=== PATIENT | female | born 2000 | race Caucasian/White ===

== ENCOUNTER → 2020-04-08 15:05 | Outpatient (CLI) | payer MEDICAID, SELFPAY ==
[2020-04-08 15:52] LABS: Absolute Lymphocyte Count 2.22 X10^3/uL (0.83-4.51); Absolute Neutrophil Count 6.4 X10^3/uL (2.0-7.7); Basophil# 0.05 X10^3/uL; Basophil% 0.5 % (0-1); Eosinophil# 0.06 X10^3/uL; Eosinophils% 0.6 % (0-5); Hemoglobin 13.4 g/dL (12.0-15.0); Lymphocyte # 2.22 X10^3/ul (4.0); Lymphocyte % 23.7 % (19-41); Mean Corp Hgb Conc 33.5 g/dL (32-36); Mean Corpuscular Hgb 30.7 pg (27.0-32.0); Mean Corpuscular Volume 91.5 fL (81-99); Mean Platelet Vol. 9.6 fl (6.2-12.0); Monocyte# 0.59 X10^3/uL; Monocyte% 6.3 % (0-10); NRBC Flagged by Analyzer 0 % (0-5); Neutrophil % 68.3 % (47-70); Platelet Count 257 K/mm3 (150-450); RBC Distribution Width CV 12.8 % (11.6-14.6); RBC Distribution Width SD 42.8 fl (35.1-43.9); Red Blood Count 4.37 M/mm3 (4.2-5.4); White Blood Count 9.4 K/mm3 (4.4-11.0)
[2020-04-08 15:55] LABS: Color, Urine Yellow (Yellow); Glucose, Dipstick 50 mg/dl (Normal); Ketone-Dipstick Negative (Negative); Leukocyte Esterase-Dipstick 100 /ul (Negative); Nitrite-Dipstick Negative (Negative); Occult Blood-Urine Negative /ul (Negative); Protein-Dipstick 15 mg/dl (Negative); Specific Gravity, Urine 1.025 (1.002-1.030); Urine Bilirubin Dipstick Negative (Negative); Urine Clarity Sl. Cloudy (Clear); Urine Urobilinogen Normal (Normal)
[2020-04-08 16:21] LABS: Amphetamine Urine VISTA NEGATIVE (<1000 ng/mL); Barbiturate Urine VISTA NEGATIVE (< 200 ng/mL); Benzodiazepine Urine VISTA NEGATIVE (< 200 ng/mL); Cocaine Urine VISTA NEGATIVE (< 300 ng/mL); Ecstacy Urine VISTA NEGATIVE (< 500 ng/mL); Methadone Urine VISTA NEGATIVE (< 300 ng/mL); PCP Urine VISTA NEGATIVE (< 25 ng/mL); THC Urine VISTA NEGATIVE (< 50 ng/mL); Vista UDS pH Range 6
[2020-04-08 16:37] LABS: Free T3 2.4 pg/mL (2.18-3.98); T4 Free Direct 1.13 ng/dL (0.76-1.46)
[2020-04-09 09:49] LABS: HIV - WCH Non-Reactive (Nonreactive); Hepatitis B Surface Antigen Non-Reactive (Nonreactive); Hepatitis C Antibody Non-Reactive (Nonreactive); Rubella IgG 116.6 IU/mL
[2020-04-12 20:07] LABS: Chlamydia By Nucleic Acid AMP Negative (Negative)
[2020-04-12 20:12] LABS: Gonococcus By Nucleic Acid AMP Negative (Negative)
[2020-04-13 18:21] LABS: HPV Reflexed? NOT INDICATED
[2020-04-15 03:02] LABS: Prenatal RPR NONREACTIVE (NONREACTIVE)
== END ==
PROVIDERS: Visit Provider Obstetrics & Gynecology
DX: O99.281 Endocrine, nutritional and metabolic diseases complicating pregnancy, first trimester (principal); E03.9 Hypothyroidism, unspecified; E06.3 Autoimmune thyroiditis; Z3A.00 Weeks of gestation of pregnancy not specified; Z12.4 Encounter for screening for malignant neoplasm of cervix; Z11.3 Encounter for screening for infections with a predominantly sexual mode of transmission
CPT/HCPCS: 36415; 80307; 81002; 84439; 84481; 85025; 86703; 86762; 86803; 87077; 87086; 87088; 87340; 87491; 87591; 88175; G0145

== ENCOUNTER → 2020-05-11 14:18 | Outpatient (CLI) | payer MEDICAID, SELFPAY ==
[2020-05-11 16:16] LABS: Free T3 2.4 pg/mL (2.18-3.98); T4 Free Direct 1.05 ng/dL (0.76-1.46); Thyroid Stim Hormone (TSH) 1.15 uIU/mL (0.358-3.74)
== END ==
PROVIDERS: Visit Provider Student in an Organized Health Care Education/Training Program
DX: E06.3 Autoimmune thyroiditis (principal)
CPT/HCPCS: 36415; 84439; 84443; 84481

== ENCOUNTER → 2020-07-08 13:41 | Outpatient (CLI) | payer MEDICAID, SELFPAY ==
[2020-07-08 15:28] LABS: Hematocrit 35.1 % (37-47); Hemoglobin 11.7 g/dL (12.0-15.0); Mean Corp Hgb Conc 33.3 g/dL (32-36); Mean Corpuscular Hgb 31.1 pg (27.0-32.0); Mean Corpuscular Volume 93.4 fL (81-99); Mean Platelet Vol. 10.5 fl (6.2-12.0); Platelet Count 271 K/mm3 (150-450); RBC Distribution Width CV 12.5 % (11.6-14.6); RBC Distribution Width SD 42.8 fl (35.1-43.9); Red Blood Count 3.76 M/mm3 (4.2-5.4); White Blood Count 9.4 K/mm3 (4.4-11.0)
[2020-07-08 16:18] LABS: Free T3 2.5 pg/mL (2.18-3.98); Glucose Challenge Gest 1H 50g 88 mg/dL (70-140); T4 Free Direct 1.12 ng/dL (0.76-1.46); Thyroid Stim Hormone (TSH) 1.41 uIU/mL (0.358-3.74)
== END ==
PROVIDERS: Visit Provider Student in an Organized Health Care Education/Training Program
DX: O26.892 Other specified pregnancy related conditions, second trimester (principal); E06.3 Autoimmune thyroiditis; Z3A.00 Weeks of gestation of pregnancy not specified
CPT/HCPCS: 36415; 82950; 84439; 84443; 84481; 85027

== ENCOUNTER → 2020-08-05 11:30 | Outpatient (CLI) | payer MEDICAID, SELFPAY ==
[2020-08-05 13:56] LABS: Free T3 2.3 pg/mL (2.18-3.98); T4 Free Direct 1.01 ng/dL (0.76-1.46); Thyroid Stim Hormone (TSH) 1.04 uIU/mL (0.358-3.74)
== END ==
PROVIDERS: Visit Provider Student in an Organized Health Care Education/Training Program
DX: E03.9 Hypothyroidism, unspecified (principal)
CPT/HCPCS: 36415; 84439; 84443; 84481

== ENCOUNTER → 2020-09-02 14:17 | Outpatient (CLI) | payer MEDICAID, SELFPAY ==
[2020-09-02 15:15] LABS: T4 Free Direct 1.06 ng/dL (0.76-1.46)
== END ==
PROVIDERS: Visit Provider Obstetrics & Gynecology
DX: Z34.83 Encounter for supervision of other normal pregnancy, third trimester (principal)
CPT/HCPCS: 36415; 84439; 84443

== ENCOUNTER → 2020-09-27 15:45 | Outpatient (CLI) | payer MEDICAID, SELFPAY | PROVIDERS: Visit Provider Obstetrics & Gynecology | DX: Z34.83 Encounter for supervision of other normal pregnancy, third trimester (principal); Z36.85 Encounter for antenatal screening for Streptococcus B | CPT/HCPCS: 87081; 87086; 87088 ==

== ENCOUNTER 2020-10-07 13:42 | Outpatient (CLI) | payer MEDICAID, SELFPAY ==
[2020-10-07 13:45] VITALS: BMI 27.8
[2020-10-07 14:19] LABS: ROM Internal Control Test YES-OK TO RESULT pt. (Internal QC); ROM Patient Test Negative (Negative)
--- NOTE | 2020-10-08 08:05 | OB.TRI.NOTE ---
History of Present Illness Date of Service: 10/07/20 Was patient seen by the physician?: No Reason For Visit: R/O RUPTURE Date of Service: 10/07/20 Final DAYNA: 10/24/20 Final DAYNA Source: US <20 weeks Gestational age: 37 Weeks and 4 Days History of Present Illness: 37+ week intrauterine presents with some leaking of fluid. Thinks her water might of broke. Patient also having regular mild contractions. Allergies cefdinir [From Omnicef] Allergy (Verified 10/07/20 14:00) Hives Penicillins Allergy (Verified 10/07/20 14:00) Hives Laboratory Studies: Laboratory Tests 10/07/20 Range/Units 13:50 Vag Amniotic Fld Detect Negative (Negative) NST - FHR Rate Baby A NST Reactive:: Yes FHR Category:: Category I Uterine Activity:: Regular contractions noted on monitor. Impression/Plan 37+ week intrauterine with false labor. Cervix unchanged after her observation. ROM test negative. Reactive nonstress test. Labor instructions given and patient instructed to return for routine care in the office.
== END 2020-10-07 14:45 | disposition home or self-care (01) ==
LOC: OBT 13:44 → WP 13:45
PROVIDERS: Referring Provider Obstetrics & Gynecology; Visit Provider Obstetrics & Gynecology
DX: O47.1 False labor at or after 37 completed weeks of gestation (principal); Z3A.37 37 weeks gestation of pregnancy; Z88.0 Allergy status to penicillin; Z88.1 Allergy status to other antibiotic agents
CPT/HCPCS: 59025; 59050; 84112; 99218; G0378

== ENCOUNTER 2020-10-09 19:00 | Outpatient (CLI) | payer MEDICAID, SELFPAY ==
[2020-10-07 14:00] VITALS: O2SAT 99
[2020-10-09 19:36] VITALS: TEMP 36.1
[2020-10-09 19:37] VITALS: BP 125/77; PULSE 90
[2020-10-09 19:48] VITALS: BMI 27.6
--- NOTE | 2020-10-10 00:32 | OB.TRI.NOTE ---
History of Present Illness Date of Service: 10/09/20 Was patient seen by the physician?: No Reason For Visit: R/O LABOR Date of Service: 10/09/20 Final DAYNA: 10/24/20 Final DAYNA Source: US <20 weeks Gestational age: 38 Weeks and 0 Days History of Present Illness: Patient arrives with contractions Allergies cefdinir [From Omnicef] Allergy (Verified 10/09/20 19:49) Hives Penicillins Allergy (Verified 10/09/20 19:49) Hives Physical Exam Vitals: Vital Signs Temp Pulse BP Pulse Ox 97.0 F L 90 125/77 H 99 10/09/20 19:36 10/09/20 19:37 10/09/20 19:37 10/07/20 14:00 NST - FHR Rate Baby A Baseline: 120 Variability:: Moderate Accelerations:: 15 x 15 Decelerations:: None NST Reactive:: Yes Uterine Activity:: Few contractions Impression/Plan Patient arrived good with contractions. Cervix unchanged from office check. Ruled out labor. Okay to discharge home with labor precautions. Follow-up at scheduled appointments.
== END 2020-10-09 20:40 | disposition home or self-care (01) ==
LOC: WPOUT 19:14 → WP 19:14
PROVIDERS: Visit Provider Obstetrics & Gynecology
DX: O26.893 Other specified pregnancy related conditions, third trimester (principal); N85.8 Other specified noninflammatory disorders of uterus; Z3A.38 38 weeks gestation of pregnancy
CPT/HCPCS: 59025; 59050; 99218; G0378

== ENCOUNTER → 2020-10-13 11:40 | Outpatient (CLI) | payer MEDICAID, SELFPAY ==
[2020-10-09 19:48] VITALS: BMI 27.6
[2020-10-13 11:53] LABS: Hematocrit 35.8 % (37-47); Hemoglobin 11.5 g/dL (12.0-15.0); Mean Corp Hgb Conc 32.1 g/dL (32-36); Mean Corpuscular Hgb 27.9 pg (27.0-32.0); Mean Corpuscular Volume 86.9 fL (81-99); Mean Platelet Vol. 10.7 fl (6.2-12.0); Platelet Count 250 K/mm3 (150-450); RBC Distribution Width CV 12.8 % (11.6-14.6); Red Blood Count 4.12 M/mm3 (4.2-5.4); White Blood Count 8.2 K/mm3 (4.4-11.0)
[2020-10-13 12:10] LABS: Protein, Urine (Random) 9.1 mg/dL (<11.9); Protein:Creat Ratio 143 mg/g CRE (0-200)
[2020-10-13 12:54] LABS: ALB/GLOB Ratio 0.7 RATIO (0.9-2.4); AST(SGOT) 17 U/L (15-37); Alanine Aminotransfer ALT/SGPT 19 U/L (13-56); Albumin, Serum 2.8 g/dL (3.2-5.0); Alkaline Phosphatase 151 U/L (45-117); Anion Gap 7 (5-15); BUN 5 mg/dL (7-18); BUN/Creat Ratio 9.9 RATIO (10-20); Calcium,Total 8.5 mg/dL (8.5-10.1); Chloride 108 mmol/L (98-107); Creatinine, Serum 0.51 mg/dL (0.55-1.02); EST Glomerular Filtration Rate 162 mL/min (>60); Est Glom Filt Rate - Afr Amer 196 mL/min (>60); Glucose 72 mg/dL (74-106); LDH 187 U/L (84-246); Potassium 3.8 mmol/L (3.5-5.1); Protein, Total 6.8 g/dL (6.4-8.2); Sodium Level 138 mmol/L (136-145)
== END ==
PROVIDERS: Visit Provider Student in an Organized Health Care Education/Training Program
DX: O13.3 Gestational [pregnancy-induced] hypertension without significant proteinuria, third trimester (principal); Z3A.00 Weeks of gestation of pregnancy not specified
CPT/HCPCS: 36415; 80053; 82570; 83615; 84156; 85027; 87086; 87088

== ENCOUNTER 2020-10-26 18:45 | Inpatient (IN) | payer MEDICAID, SELFPAY ==
[2020-10-26 19:00] VITALS: BP 137/85; PULSE 75; O2SAT 99
[2020-10-26 19:01] VITALS: TEMP 36.6
[2020-10-26 19:11] VITALS: BMI 29.0
[2020-10-26] MEDS: miSOPROStol 25 MCG TABLET VAGINAL (19:50)
[2020-10-26 20:01] LABS: Absolute Neutrophil Count 8.2 X10^3/uL (2.0-7.7); Basophil# 0.03 X10^3/uL; Basophil% 0.3 % (0-1); Eosinophil# 0.04 X10^3/uL; Eosinophils% 0.3 % (0-5); Hematocrit 35.3 % (37-47); Hemoglobin 11.4 g/dL (12.0-15.0); Lymphocyte % 19.1 % (19-41); Mean Corp Hgb Conc 32.3 g/dL (32-36); Mean Corpuscular Hgb 27.5 pg (27.0-32.0); Mean Corpuscular Volume 85.3 fL (81-99); Monocyte# 0.95 X10^3/uL; Monocyte% 8.2 % (0-10); NRBC Flagged by Analyzer 0 % (0-5); Neutrophil # 8.23 X10^3/uL (2.7-7.7); Neutrophil % 71.3 % (47-70); Platelet Count 257 K/mm3 (150-450); RBC Distribution Width CV 13.2 % (11.6-14.6); Red Blood Count 4.14 M/mm3 (4.2-5.4); White Blood Count 11.5 K/mm3 (4.4-11.0)
--- NOTE | 2020-10-26 20:04 | PCM.HP.BLA ---
History and Physical Date of Admission: 10/26/20 Chief complaint: Induction of labor at term History of present illness: 20-year-old G1, P0 at 40 weeks and 2 days with DAYNA: 10/24/2020 by 12-week ultrasound arrives for induction of labor at term. Denies headache, visual changes, chest pain, shortness of breath, nausea vomiting, right upper quadrant pain. Patient states good movement. Obstetric history: G1: Current Past medical history: Alexsander's Medications: vitamin Past surgical history: Tonsils and adenoids Social history: Former smoker, denies alcohol, denies drug use Allergies: Omnicef (rash), penicillin (rash) Family history: Denies history of DVT or PE Review of systems: Besides above pertinent positives a full review of systems was performed and found to be negative Physical exam: Vitals: BP 125/77 pulse 75 SPO2 99% on room air temperature 97.0 General: Normal-appearing no acute distress HEENT: Normocephalic atraumatic no cervical of adenopathy Cardiac/respiratory: Nonlabored breathing, no use of accessory muscles Abdomen: Soft, nontender, gravid Pelvic exam: Cervical exam 50/-3 Extremities: no peripheral edema normal peripheral pulses Psych: Normal affect normal demeanor nonpressured speech Assessment and plan: 20-year-old G1, P0 at 40 weeks and 2 days arrives for induction of labor at term. -Admit labor and delivery -CEFM -GBS negative -Induction via Cytotec -Routine orders -Anesthesia to see
[2020-10-26] MEDS: 0.9% Saline Lock 10 ML Syringe IV (23:40)
[2020-10-26] MEDS: Lactated Ringers 1,000 ML 50 ML IV (23:44)
[2020-10-26] MEDS: Lactated Ringers 500 ML 999 ML IV (23:46)
[2020-10-26 23:49] VITALS: BP 96/56; PULSE 61; TEMP 36.7; O2SAT 100
[2020-10-27] VITALS (57 sets, daily range): BP systolic 108–139; BP diastolic 60–93; PULSE 65–214; RESP 16–18; TEMP 36.4–37.3; O2SAT 79–100
[2020-10-27 00:27] LABS: ROM Internal Control Test YES-OK TO RESULT pt. (Internal QC)
[2020-10-27 00:29] LABS: ROM Patient Test POSITIVE (Negative)
[2020-10-27] MEDS: Oxytocin 30 units/NS 500 ml 30 UNITS/500 ML IV.SOLN IV (00:49)
[2020-10-27] MEDS: Lactated Ringers 500 ML 999 ML IV ×2 (02:03→07:02)
[2020-10-27] MEDS: fentaNYL-bupivacaine (epidural) 100 ML BAG EPIDURAL ×2 (03:03→06:56)
[2020-10-27] MEDS: Lactated Ringers 1,000 ML 200 ML IV (06:55)
[2020-10-27] MEDS: Ondansetron 4 MG/2 ML Vial IV (07:28)
--- NOTE | 2020-10-27 08:13 | PN.OBGYN_ITS ---
Subjective Subjective: Patient seen and examined. Comfortable with epidural. Objective Data Objective Data Vital Signs: Vital Signs Temp Pulse BP Pulse Ox 98.4 F 106 H 132/85 H 99 10/27/20 07:17 10/27/20 07:17 10/27/20 07:17 10/27/20 06:20 Weight: 153 lb 9.6 oz Body Mass Index (BMI) 29.0 Intake & Output: Intake and Output for Last 24 Hours 10/25/20 10/26/20 10/27/20 23:59 23:59 23:59 Intake Total 0.83 / 0.83 2282.86 / 2282.86 Output Total 550 / 550 Balance 0.83 / 0.83 1732.86 / 1732.86 Lab / Micro Data Result Diagrams: 10/26/20 19:37 Labs: Laboratory Results - last 24 hr 10/26/20 10/26/20 10/27/20 19:37 19:37 00:10 WBC 11.5 H RBC 4.14 L Hgb 11.4 L Hct 35.3 L MCV 85.3 MCH 27.5 MCHC 32.3 RDW Std Deviation 41.0 RDW Coeff of Rebeca 13.2 Plt Count 257 MPV 12.0 Immature Gran % (Auto) 0.800 Neut % (Auto) 71.3 H Lymph % (Auto) 19.1 [place] % (Auto) 8.2 Eos % (Auto) 0.3 Baso % (Auto) 0.3 Absolute Neuts (auto) 8.2 H Absolute Lymphs (auto) 2.20 Nucleated RBC % 0 Vag Amniotic Fld Detect POSITIVE H Blood Type O POSITIVE Antibody Screen NEGATIVE Micro: Microbiology 10/26/20 19:35 Interface Orders SARS-CoV-2 Antigen (Rapid) - Final Physical Exam Const alert, oriented x3 and no apparent distress HEENT normocephalic Resp no retractions and no use of accessory muscles GI GI Narrative: Cervical Exam: /+1 Extremity normal to inspection Skin no rashes or lesions noted Psych mental status grossly normal, affect normal, speech normal and activity/motor behavior normal Assessment & Plan Assessment/Plan (1) : Status: Acute Code(s): Z34.90 - Encounter for supervision of normal , unspecified, unspecified trimester Plan: Patient seen and examined. Now /+2. Okay to start pushing. heart tones 130s/moderate variability/negative accelerations/positive early decelerations.
[2020-10-27] MEDS: Oxytocin 30 units/NS 500 ml 30 UNITS/500 ML IV.SOLN 334 UNITS IV (11:49)
--- NOTE | 2020-10-27 12:10 | OP.PCM_ITS ---
Report of Operation (OB) Operative Information Date of Procedure: 10/27/20 Pre-Operative Diagnosis: Term, maternal exhaustion Post-Operative Diagnosis: Term, maternal exhaustion Type of Anesthesia: Epidural Findings Description of Procedure: Procedure: Vacuum-assisted vaginal delivery Surgeon: Emory Royal MD Anesthesia: Epidural EBL: 200 cc Complications: None Specimen: None Findings: Male in vertex position with a +2 station. Apgars 9/9. Second-degree midline perineal laceration, bilateral labial laceration noted and repaired in typical fashion. Consent: Patient arrived for term induction of labor progressed to complete dilation. Patient pushed for greater than 3 hours and became extremely exhausted. The head was palpated to be LEYLA and +2 station. The pelvis felt to be adequate and appropriate for vaginal delivery. Epidural anesthesia was adequate for pain relief. Educated the patient on options of section versus vacuum-assisted vaginal delivery versus forceps assisted vaginal delivery including the risk of each procedure. Patient desired to proceed with vacuum- assisted vaginal delivery, understood there are small risks of cephalh ematoma or shoulder dystocia. The process of the vacuum delivery was explained to the patient. Patient stated understanding wished proceed. All questions were answered. Procedure: Alicea catheter was present. Vaginal examination reconfirmed LEYLA position +2 station. The Kiwi vacuum device was applied over the sagittal suture 3 cm in front of the posterior fontanelle toward the face. Vacuum pressure was created. The edge of the cup was carefully examined, and no maternal tissue was entrapped under the cup. Right hand applied gentle horizontal traction along the pelvic access in coordination with uterine contractions maternal pushing. Progressive descent was noted with each pull x3. The cup did not pop off the head throughout the procedure. The cup was removed after the head was delivered. Head and shoulders were delivered with ease. Cord was cut and clamped. Baby was handed off to nursing. Placenta was delivered via cord traction and fundal massage. IV oxytocin was initiated to facilitate uterine contractions. The cervix and vaginal wall were thoroughly examined. Second- degree midline perineal laceration and bilateral labial laceration noted and repaired in typical fashion. The infant was examined after delivery. No visible lacerations were noted.
--- NOTE | 2020-10-27 12:20 | PCM.DC ---
Discharge Plan Admission Admit Date/Time: 10/26/20 18:45 Attending Provider: Emory Royal Discharge Orders/Prescriptions Prescriptions: No Action Caplet 1 tablet PO DAILY RF: 0 famotidine [Pepcid] 20 mg Tablet 20 mg PO DAILY RF: 0 Disposition Discharge Orders: Discharge Patient (Routine); Ordered 10/28/20 Ordered By: Dr. Emory Royal
[2020-10-27] MEDS: 0.9% Saline Lock 10 ML Syringe IV (14:29)
[2020-10-27] MEDS: Ibuprofen 600 MG Tablet PO (14:44)
[2020-10-28 00:08] VITALS: BP 118/78; PULSE 79; RESP 16; TEMP 36.8
[2020-10-28] MEDS: Acetaminophen 500 MG Tablet 1000 MG PO (00:12)
[2020-10-28] MEDS: Ibuprofen 600 MG Tablet PO ×2 (02:20→14:01)
[2020-10-28 03:25] VITALS: BP 113/69; PULSE 75; RESP 16; TEMP 36.8
--- NOTE | 2020-10-28 07:22 | PCM.PN.OB ---
Subjective Subjective: No overnight complaints. Pain well controlled. Objective Data Objective Data Vital Signs: Vital Signs Temp Pulse Resp BP Pulse Ox 98.2 F 75 16 113/69 100 10/28/20 03:25 10/28/20 03:25 10/28/20 03:25 10/28/20 03:25 10/27/20 13:56 Oxygen Delivery Method Room Air Weight: 153 lb 9.6 oz Body Mass Index (BMI) 29.0 Intake & Output: Intake and Output for Last 24 Hours 10/26/20 10/27/20 10/28/20 23:59 23:59 23:59 Intake Total 0.83 / 0.83 4674.06 / 4674.06 Output Total 2550 / 2550 Balance 0.83 / 0.83 2124.06 / 2123.06 Lab / Micro Data Result Diagrams: 10/26/20 19:37 Micro: Microbiology 10/26/20 19:35 Interface Orders SARS-CoV-2 Antigen (Rapid) - Final Physical Exam Const alert, oriented x3, no apparent distress, average body habitus, healthy appearing and well nourished HEENT normocephalic Head and Scalp: atraumatic Resp normal respiratory effort, no retractions and no use of accessory muscles GI soft to palpation and non-tender Uterus Palpation: uterus fundus firm Extremity normal to inspection, full ROM and no clubbing, cyanosis or edema Psych mental status grossly normal and affect normal Assessment & Plan (1) : PLAN: day 1 status post vacuum-assisted vaginal delivery for maternal exhaustion. Pain well controlled. Okay to discharge home today if okay with mower mechanic
--- NOTE | 2020-10-28 07:28 | PCM.DC ---
Discharge Instructions Diet Discharge Diet: No restrictions Activity Discharge Activity: Return to Normal Activity, No Restrictions, May Drive and May Shower May resume sexual activity in: 4-6 weeks Weight Bearing Status: Weight bearing as tolerated Dressing / Incision Call your doctor if your incision/area has: Continuous Slow Oozing, Increased Pain/ Swelling and Foul Smelling Discharge Call your doctor if you observe: Fever of 101 or Higher, Shortness of breath and Chest pain Discharge Plan Admission Admit Date/Time: 10/26/20 18:45 Attending Provider: Emory Royal Discharge Orders/Prescriptions Prescriptions: No Action Caplet 1 tablet PO DAILY RF: 0 famotidine [Pepcid] 20 mg Tablet 20 mg PO DAILY RF: 0 Disposition Discharge Orders: Discharge Patient (Routine); Ordered 10/28/20 Ordered By: Dr. Emory Royal
[2020-10-28 07:52] VITALS: BP 122/78; PULSE 65; RESP 18; TEMP 36.6
--- NOTE | 2020-10-28 12:09 | CASEMGMT ---
Social Work Note: Referral Source: Emory Royal Reason for Referral: Anxiety and depression history Initially, when social organization professor went into the room patient was asleep and FOB was holding the , Michi. SW agreed to follow up later so patient could sleep. Approximately 15 minutes later SW met with patient and the father of the baby (FOB) in their room .Patient gave this repairer typewriter verbal consent to speak to her in the presence of the FOB. SW educated patient and FOB on Post Depression and risk factors. Patient verbalized understanding or risk factors. FOB also appeared receptive to receiving information on Post Depression. Patient was Now, P1 after delivery. Patient received her PNC from [facility]. Patient reports that she plans to not use control. was born at 40 weeks. Newborns was 10/27/20. Newborns apgars were 9/9 and weight was 7lbs and 2 ounces. Patient plans to breast feed the and reports that feeding are going well. Branchdale is named Michi Lewis. Patient and the FOB reside in an apartment in [facility]. will reside with them. Patient is able to drive and has a car. No transportation issues. Patient reports she has all necessary supplies including bassinets. Patient said I think I have had everything for him.. I was done 3 months ago. Patient said that the has lots of baby supplies. Patient confirmed that her support is Aren and her mom and pretty much everyone.. the people I work with. Patient graduated high school and has no reported learning issues. Patient is currently employed at [employer] in [place]. 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 Patient plans to take 6 weeks off work. Patient reports she has [employer]. Patient reports she is considering WIC. SW asked if patient needed information about WIC and she indicated she had the WIC pamphlet. Patient reports a history of counseling with [facility]. Patient said that she went to counseling as a result of a suicide attempt. Patient said that at age 16 she was hospitalized for psychiatric care at [facility]. Patient said that her counselor at [facility] was Brianda Delong and I still have her card if I need to talk to someone. Patient said that she has not had suicidal thoughts or ideations since her psychiatric hospitalization. Patient reports that she was going through a difficult time, at age 16 as she witnessed an individual being murdered and he in her arms and then one week later her best friend committed suicide. Patient said that she had been diagnosed with Post Traumatic Stress Disorder. Patient again was asked about any current Suicidal Ideation or thoughts and she denied any current thoughts or ideations. Patient was educated that if she was in crisis to speak to family and father of the baby and contact [facility], Noemi or go to the nearest Emergency Room and patient verbalized understanding. Patient said that she has not been to counseling for 3 years but has the counselor's card if she would need services. FOB is Aren Lewis. Patient and Aren have been together since January 19, 2020. Aren confirmed he will be involved with . Aren is employed as a member of the [employer] which is union for [employer]. QUINTON works for [employer] in [place]. FOB has no other children. Patient and FOB were educated on Shaken Baby Syndrome, PPD and Safe Sleeping and both verbalized understanding. Mother denied any drug or alcohol use. Patient is a former tobacco smoker. Patient had tox screen on 04/08/20 that was negative. AT this time during the interview SW requested that Aren leave so this repairer typewriter could speak to patient privately and Aren was very cooperative. SW reviewed the [place] Depression Scale and her score was a 6 which is not indicative of depression. Patient confirmed no current suicidal thoughts and stated she has not been suicidal since she was 16 years old. Patient was provided with handouts on [facility] resources, including counselors, Safe Sleep information, Post Depression Education and Shaken Baby Syndrome. No other issues or needs were noted. Branchdale was out of the room due to 24 hour testing so this repairer typewriter did not see interaction with patient and . However, social organization professor noted and FOB interaction appeared to be appropriate with bonding and connecting. Plan: BranchdaleMichi, will be discharged home with patient and FOB. Ivette BARAHONA
[2020-10-28 13:00] VITALS: BP 117/81; PULSE 81; RESP 18; TEMP 36.5
== END 2020-10-28 15:55 | disposition home or self-care (01) | DRG 560 ==
PROVIDERS: Admitting Provider Obstetrics & Gynecology; Visit Provider Obstetrics & Gynecology
DX: O76 Abnormality in fetal heart rate and rhythm complicating labor and delivery (principal); O75.81 Maternal exhaustion complicating labor and delivery; O70.1 Second degree perineal laceration during delivery; O99.284 Endocrine, nutritional and metabolic diseases complicating childbirth; E06.3 Autoimmune thyroiditis; Z3A.40 40 weeks gestation of pregnancy; Z37.0 Single live birth; Z87.891 Personal history of nicotine dependence
CPT/HCPCS: 59025; 59050; 84112; 85025; 86850; 86900; 86901; 87426; 99218; J7120; A4216; G0378; J2405

== ENCOUNTER 2020-11-01 14:56 | Outpatient (CLI) | payer MEDICAID, SELFPAY | END 2020-11-01 15:55 | disposition home or self-care (01) | LOC: WPOUT 14:58 → WP 14:58 | PROVIDERS: Referring Provider Obstetrics & Gynecology; Visit Provider Obstetrics & Gynecology | DX: R69 Illness, unspecified (principal) ==

== ENCOUNTER → 2020-12-03 10:49 | Outpatient (CLI) | payer MEDICAID, SELFPAY ==
[2020-12-03 11:43] LABS: T4 Free Direct 1.07 ng/dL (0.76-1.46); Thyroid Stim Hormone (TSH) 1.28 uIU/mL (0.358-3.74)
[2020-12-03 12:19] LABS: Hematocrit 41.3 % (37-47); Hemoglobin 12.7 g/dL (12.0-15.0); Mean Corp Hgb Conc 30.8 g/dL (32-36); Mean Corpuscular Hgb 26.1 pg (27.0-32.0); Mean Platelet Vol. 10.1 fl (6.2-12.0); Platelet Count 455 K/mm3 (150-450); RBC Distribution Width CV 14.1 % (11.6-14.6); RBC Distribution Width SD 43.8 fl (35.1-43.9); Red Blood Count 4.86 M/mm3 (4.2-5.4); White Blood Count 7.5 K/mm3 (4.4-11.0)
== END ==
PROVIDERS: Visit Provider Obstetrics & Gynecology
DX: E06.3 Autoimmune thyroiditis (principal)
CPT/HCPCS: 36415; 84439; 84443; 85027

== ENCOUNTER → 2020-12-08 10:45 | Outpatient (CLI) | payer MEDICAID, SELFPAY ==
--- NOTE | 2020-12-08 10:49 | US_ITS ---
STUDY: ULTRASOUND BREAST - RIGHT REASON FOR EXAM: Female, 20 years old. Mastitis with . TECHNIQUE: Axial and longitudinal images of the RIGHT breast were performed with a high resolution ultrasound transducer. # OF IMAGES: 24 COMPARISON: None. FINDINGS: RIGHT Breast: There is a 3 cm x 4.2 cm x 1.8 cm complex nodular density at the 12 o''clock position of the breast at 2 cm from the nipple. This may represent a focal area of mastitis. Abscess cannot be excluded. US/Breast Limited Unilateral IMPRESSION: 3 cm x 4.2 cm x 1.8 cm complex nodular density at the 12 o''clock position of the breast at 2 cm from the nipple. This most likely represents an area of mastitis although focal abscess cannot be excluded. ASSESSMENT CATEGORY: BIRADS Category 2: Benign. A letter regarding these results will be sent to the patient by the facility within 30 days. Electronically Signed: Carlos Hollins MD at 12:27 EDT , Service support ,
== END ==
PROVIDERS: Referring Provider Obstetrics & Gynecology; Visit Provider Obstetrics & Gynecology
DX: O91.23 Nonpurulent mastitis associated with lactation (principal)
CPT/HCPCS: 76642